=== PATIENT | female | born 1970 | race Caucasian/White ===

== ENCOUNTER 2016-10-22 11:42 | Emergency (ER) | payer MEDICARE, OTHER ==
[~2016-10-22 11:42] MED LIST: BACTRIM DS TAB1 EACH PO; BUSPIRONE HCL15 MG PO; CHILDRENS CHEWA81 MG PO; CLARITIN10 MG PO; FIORICET 50-301 EACH PO; GLUCOPHAGE500 MG PO; LEVAQUIN500 MG PO; LEVEMIR100 UNIT/1 SQ; NEURONTIN800 MG PO; NICODERM 21MG PA1 EA TD; NORVASC5 MG PO; NOVOLOG100 UNIT/2 SQ; PAXIL20 MG PO; PERCOCET 10-321 EACH PO; PHENERGAN25 M1 PO; PRAVACHOL40 MG PO; PRILOSEC20 MG PO; VALIUM5 MG PO; ZANAFLEX4 M1 PO; ZESTRIL30 MG PO; ZOFRAN4 MG PO
== END 2016-10-22 12:40 | disposition home or self-care (01) ==
LOC: ER 11:42
DX: Z48.817 Encounter for surgical aftercare following surgery on the skin and subcutaneous tissue (principal); E11.9 Type 2 diabetes mellitus without complications; G43.909 Migraine, unspecified, not intractable, without status migrainosus; Z86.73 Personal history of transient ischemic attack (TIA), and cerebral infarction without residual deficits; F17.210 Nicotine dependence, cigarettes, uncomplicated
CPT/HCPCS: 99070; 99282; 99283